=== PATIENT | female | born 1990 | race African-American/Black ===

== ENCOUNTER 2016-04-26 19:07 | Emergency (ER) | payer OTHER ==
[2016-04-26] MEDS ORDERED: AMOXICILLIN 500 MG CAP As Ordered ONE (20:38)
--- NOTE | 2016-04-26 20:57 | EDDOCDS ---
Nurse's Notes [facility] Name: Christel Arreola Age: 25 yrs Sex: Female : 1990 Arrival Date: 04/26/2016 Time: 19:07 Bed D1 Private MD: Vik [facility] Diagnosis: Acute upper respiratory infections of multiple and unspecified sites;Acute bronchitis Presentation: 04/26 19:15 Presenting complaint: Patient states: that she has had a cold and fever for the past ms18 week. Pt also reports cough. Adult Sepsis Screening: The patient does not have new or worsening altered mentation. Patient's respiratory rate is less than 22. Systolic blood pressure is greater than 100. Patient has a qSOFA score of 0- Negative Sepsis Screen. Suicide/Homicide risk assessment- the patient denies having any suicidal and/or homicidal ideations and does not present with any other emotional, behavioral or mental health complaints. Status: The patient is a dependent. Transition of care: patient was not received from another setting of care. 19:15 Acuity: ABYB Level 4 ms18 19:15 Method Of Arrival: Walkin/Carried/Asstd ms18 Triage Assessment: 19:16 General: Appears in no apparent distress, comfortable, Behavior is appropriate for age, ms18 cooperative. Pain: Pain currently is 0 out of 10 on a pain scale. HIV screening NA for this visit Offered previously. Neurological: Level of Consciousness is awake, alert, obeys commands, Oriented to person, place, time. Respiratory: Airway is patent Respiratory effort is even, unlabored. Derm: Skin is pink, warm & dry. normal. 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 none - PMHx: none; - PSHx: ; - Social history: Smoking status: Patient states was never smoker of tobacco. No barriers to communication noted, The patient speaks fluent Turkish. - Family history: Not pertinent. - : The pt / caregiver states he / she is not on anticoagulants. Home medication list is obtained from the patient. - Exposure Risk Screening:: None identified. Screenin:53 Screening information is obtained from the patient. Fall risk: No risks identified. jmb Assistance ADL's: requires no assistance with activities of daily living. Abuse/DV Screen: The patient / caregiver reports he/she is: not in a situation that causes fear, pain or injury. Nutritional screening: No deficits noted. Advance Directives: Currently, there is no health care proxy. There is no active DNR order. There is no living will. There is no Power of Flavor Maker. home support is adequate. Assessment: 20:53 General: Patient instructed on discharge instructions. Patient asked if there were any jmb questions regarding discharge, patient stated no. Patient signed discharge instructions. Patient discharged in stable condition. . Vital Signs: 19:08 BP 128 / 75; Pulse 75; Resp 18 S; Temp 97.7(O); Pulse Ox 100% on R/A; Weight 72.57 kg dd6 (R); Height 5 ft. 6 in. (167.64 cm) (R); 20:53 BP 120 / 70; Pulse 80; Resp 18; Temp 97.6(O); Pulse Ox 98% on R/A; Pain 0/10; jmb 19:08 Body Mass Index 25.82 (72.57 kg, 167.64 cm) dd6 Vitals: 19:08 Log In Time: April 26, 2016 at 19:00. dd6 ED Course: 19:08 Patient visited by Willian Rene PCA. dd6 19:08 TREASURE Chery is Private Physician. dd6 19:08 Patient moved to Waiting dd6 19:09 Patient moved to Pre RCE dd6 19:15 Triage Initiated ms18 19:44 Patient moved to D1 jmb 19:54 [facility] cc10 19:54 Gaetano Woodard DO is Attending Physician. cc10 20:10 Patient visited by Mikal Bravo PA-C. cc10 20:10 Patient visited by Mikal Bravo PA-C. cc10 20:45 BHAVIN Chery is Referral Physician. cc10 20:53 The patient / caregiver is instructed regarding the plan of care and ED course. jmb 20:53 No IV's were initiated during this patient's visit. No procedures done that require jmb assistance. Administered Medications: 20:44 Drug: Amoxicillin 500 mg [amoxicillin 500 mg capsule (1 caps)] Route: PO; jmb Order Results: There are currently no results for this order. Outcome: 20:45 Discharge ordered by Provider. cc10 20:53 Discharge Assessment: Patient awake, alert and oriented x 3. No cognitive and/or jmb functional deficits noted. Patient verbalized understanding of disposition instructions. Patient awake and alert. obeys commands, Oriented to person, place and time. Patient verbalized understanding of disposition instructions. Patient has no functional deficits. patient administered narcotics - no. The following High Risk Discharge criteria are identified: None. Discharged to home ambulatory, with family. Condition: stable Condition: improved. Discharge instructions given to patient, Instructed on discharge instructions, follow up and referral plans. medication usage, Demonstrated understanding of instructions, medications, Pt was receptive of discharge instructions/ teaching. Prescriptions given X 3. No special radiology studies were completed. Property sent home with patient. 20:57 Patient left the ED. erica Signatures: Willian Rene, ENGINE INSTALLER ENGINE INSTALLER dd6 Benjamin Amaya,RN RN Mikal Kilgore, PA-C PA-C cc10 Melanie Ellison,RN RN ms18 [facility]
--- NOTE | 2016-04-26 20:57 | EDDOCDS ---
Physician Documentation [facility] Name: Christel Arreola Age: 25 yrs Sex: Female : 1990 Arrival Date: 04/26/2016 Time: 19:07 Bed D1 Private MD: BHAVIN Chery Disposition: 04/26/16 20:45 Discharged to Home/Self Care. Impression: Acute upper respiratory infections of multiple and unspecified sites, Acute bronchitis. - Condition is Stable. - Discharge Instructions: Acute Bronchitis, Upper Respiratory Infection, Adult. - Prescriptions for Amoxicillin 875 mg Oral Tablet - take 1 tablet by ORAL route every 12 hours for 10 days; 20 tablet. Prednisone 20 mg Oral Tablet - take 1 tablet by ORAL route once daily for 5 days; 5 tablet. benzonatate 200 mg Oral Capsule - take 1 capsule by ORAL route 3 times per day As needed; 30 capsule. - Medication Reconciliation form. - Follow up: Emergency Department; When: As needed. Follow up: BHAVIN Chery; When: Call to arrange an appointment; Reason: Wound/Symptom Recheck, Recheck today's complaints, Continuance of care. - Problem is an ongoing problem. - Symptoms are unchanged. Historical: - Allergies: no known allergies; - Home Meds: 1. none - PMHx: none; - PSHx: ; - Social history: Smoking status: Patient states was never smoker of tobacco. No barriers to communication noted, The patient speaks fluent Egyptian. - Family history: Not pertinent. - : The pt / caregiver states he / she is not on anticoagulants. Home medication list is obtained from the patient. - Exposure Risk Screening:: None identified. 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 6 in. (167.64 cm) (R); 20:53 BP 120 / 70; Pulse 80; Resp 18; Temp 97.6(O); Pulse Ox 98% on R/A; Pain 0/10; jmb 19:08 Body Mass Index 25.82 (72.57 kg, 167.64 cm) dd6 MDM: 20:34 Amoxicillin 500 mg PO once ordered. cc10 Administered Medications: 20:44 Drug: Amoxicillin 500 mg [amoxicillin 500 mg capsule (1 caps)] Route: PO; erica Signatures: Benjamin AmayaRN RN Mikal Kilgore, PA-C PA-C cc10 Melanie Ellison RN RN ms18 [facility]
--- NOTE | 2016-04-28 21:58 | EDDOCDS ---
Nurse's Notes [facility] Name: Christel Arreola Age: 25 yrs Sex: Female : 1990 Arrival Date: 04/26/2016 Time: 19:07 Bed D1 Private MD: Vik [facility] Diagnosis: Acute upper respiratory infections of multiple and unspecified sites;Acute bronchitis Presentation: 04/26 19:15 Presenting complaint: Patient states: that she has had a cold and fever for the past ms18 week. Pt also reports cough. Adult Sepsis Screening: The patient does not have new or worsening altered mentation. Patient's respiratory rate is less than 22. Systolic blood pressure is greater than 100. Patient has a qSOFA score of 0- Negative Sepsis Screen. Suicide/Homicide risk assessment- the patient denies having any suicidal and/or homicidal ideations and does not present with any other emotional, behavioral or mental health complaints. Status: The patient is a dependent. Transition of care: patient was not received from another setting of care. 19:15 Acuity: ABBY Level 4 ms18 19:15 Method Of Arrival: Walkin/Carried/Asstd ms18 Triage Assessment: 19:16 General: Appears in no apparent distress, comfortable, Behavior is appropriate for age, ms18 cooperative. Pain: Pain currently is 0 out of 10 on a pain scale. HIV screening NA for this visit Offered previously. Neurological: Level of Consciousness is awake, alert, obeys commands, Oriented to person, place, time. Respiratory: Airway is patent Respiratory effort is even, unlabored. Derm: Skin is pink, warm & dry. normal. 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 none - PMHx: none; - PSHx: ; - Social history: Smoking status: Patient states was never smoker of tobacco. No barriers to communication noted, The patient speaks fluent Serbian. - Family history: Not pertinent. - : The pt / caregiver states he / she is not on anticoagulants. Home medication list is obtained from the patient. - Exposure Risk Screening:: None identified. Screenin:53 Screening information is obtained from the patient. Fall risk: No risks identified. jmb Assistance ADL's: requires no assistance with activities of daily living. Abuse/DV Screen: The patient / caregiver reports he/she is: not in a situation that causes fear, pain or injury. Nutritional screening: No deficits noted. Advance Directives: Currently, there is no health care proxy. There is no active DNR order. There is no living will. There is no Power of Sketch Maker. home support is adequate. Assessment: 20:53 General: Patient instructed on discharge instructions. Patient asked if there were any b questions regarding discharge, patient stated no. Patient signed discharge instructions. Patient discharged in stable condition. . Vital Signs: 19:08 BP 128 / 75; Pulse 75; Resp 18 S; Temp 97.7(O); Pulse Ox 100% on R/A; Weight 72.57 kg dd6 (R); Height 5 ft. 6 in. (167.64 cm) (R); 20:53 BP 120 / 70; Pulse 80; Resp 18; Temp 97.6(O); Pulse Ox 98% on R/A; Pain 0/10; jmb 19:08 Body Mass Index 25.82 (72.57 kg, 167.64 cm) dd6 Vitals: 19:08 Log In Time: April 26, 2016 at 19:00. dd6 ED Course: 19:08 Patient visited by Willian Rene PCA. dd6 19:08 Vik [facility] is Private Physician. dd6 19:08 Patient moved to Waiting dd6 19:09 Patient moved to Pre RCE dd6 19:15 Triage Initiated ms18 19:44 Patient moved to D1 jmb 19:54 Mikal Bravo PA-C [facility]. cc10 19:54 Gaetano Woodard DO is Attending Physician. cc10 20:10 Patient visited by Mikal Bravo PA-C. cc10 20:10 Patient visited by Mikal Bravo PA-C. cc10 20:45 BHAVIN Chery is Referral Physician. cc10 20:53 The patient / caregiver is instructed regarding the plan of care and ED course. jmb 20:53 No IV's were initiated during this patient's visit. No procedures done that require jmb assistance. 22:10 [facility] Payment Agreement was scanned into [employer] and attached to record. gjb 22:43 Patient name changed from Christel\S\Mary\S\Silesia\S\ to Christel\S\ \S\Silesia. EDMS 04/27 10:34 T-Sheet-- Draft Copy was scanned into [employer] and attached to record. gb Administered Medications: 04/26 20:44 Drug: Amoxicillin 500 mg [amoxicillin 500 mg capsule (1 caps)] Route: PO; jmb Order Results: There are currently no results for this order. Outcome: 20:45 Discharge ordered by Provider. cc10 20:53 Discharge Assessment: Patient awake, alert and oriented x 3. No cognitive and/or jmb functional deficits noted. Patient verbalized understanding of disposition instructions. Patient awake and alert. obeys commands, Oriented to person, place and time. Patient verbalized understanding of disposition instructions. Patient has no functional deficits. patient administered narcotics - no. The following High Risk Discharge criteria are identified: None. Discharged to home ambulatory, with family. Condition: stable Condition: improved. Discharge instructions given to patient, Instructed on discharge instructions, follow up and referral plans. medication usage, Demonstrated understanding of instructions, medications, Pt was receptive of discharge instructions/ teaching. Prescriptions given X 3. No special radiology studies were completed. Property sent home with patient. 20:57 Patient left the ED. erica Signatures: Dispatcher [facility] EDMS Alivia Melendez, Reg Reg gb Willian Rene, ANTHROPOLOGY AND ARCHEOLOGY INSTRUCTOR ANTHROPOLOGY AND ARCHEOLOGY INSTRUCTOR dd6 Benjamin Amaya,RN RN Mikal Kilgore, PA-C PA-C cc10 Melanie Ellison RN RN ms18 Callie Antony Chart Complete MTDD
--- NOTE | 2016-04-28 21:58 | EDDOCDS ---
Physician Documentation [facility] Name: Christel Arreola Age: 25 yrs Sex: Female : 1990 Arrival Date: 04/26/2016 Time: 19:07 Bed D1 Private MD: BHAVIN Chery Disposition: 04/26/16 20:45 Discharged to Home/Self Care. Impression: Acute upper respiratory infections of multiple and unspecified sites, Acute bronchitis. - Condition is Stable. - Discharge Instructions: Acute Bronchitis, Upper Respiratory Infection, Adult. - Prescriptions for Amoxicillin 875 mg Oral Tablet - take 1 tablet by ORAL route every 12 hours for 10 days; 20 tablet. Prednisone 20 mg Oral Tablet - take 1 tablet by ORAL route once daily for 5 days; 5 tablet. benzonatate 200 mg Oral Capsule - take 1 capsule by ORAL route 3 times per day As needed; 30 capsule. - Medication Reconciliation form. - Follow up: Emergency Department; When: As needed. Follow up: BHAVIN Chery; When: Call to arrange an appointment; Reason: Wound/Symptom Recheck, Recheck today's complaints, Continuance of care. - Problem is an ongoing problem. - Symptoms are unchanged. Historical: - Allergies: no known allergies; - Home Meds: 1. none - PMHx: none; - PSHx: ; - Social history: Smoking status: Patient states was never smoker of tobacco. No barriers to communication noted, The patient speaks fluent Trinidadian. - Family history: Not pertinent. - : The pt / caregiver states he / she is not on anticoagulants. Home medication list is obtained from the patient. - Exposure Risk Screening:: None identified. 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 6 in. (167.64 cm) (R); 20:53 BP 120 / 70; Pulse 80; Resp 18; Temp 97.6(O); Pulse Ox 98% on R/A; Pain 0/10; jmb 19:08 Body Mass Index 25.82 (72.57 kg, 167.64 cm) dd6 MDM: 20:34 Amoxicillin 500 mg PO once ordered. cc10 22:10 [facility] Payment Agreement was scanned into [employer]. and attached to record. gjb 22: Financial registration complete. gjb 04/27 10:34 T-Sheet-- Draft Copy was scanned into [employer] and attached to record. gb Administered Medications: 04/26 20:44 Drug: Amoxicillin 500 mg [amoxicillin 500 mg capsule (1 caps)] Route: PO; erica Signatures: Alivia Melendez, Reg Reg gb Benjamin Amaya,RN RN Mikal Kilgore, PA-C PA-C cc10 Melanie EllisonRN RN ms18 Callie Antony The chart was reviewed and I authenticate all verbal orders and agree with the evaluation and treatment provided.Attachments: 22:10 [facility] Payment Agreement gjb 04/27 10:34 T-Sheet-- Draft Copy gb Chart Complete MTDD
--- NOTE | 2016-04-28 21:58 | EDDOCDS ---
Physician Documentation [facility] Name: Christel Arreola Age: 25 yrs Sex: Female : 1990 Arrival Date: 04/26/2016 Time: 19:07 Bed D1 Private MD: BHAVIN Chery Disposition: 04/26/16 20:45 Discharged to Home/Self Care. Impression: Acute upper respiratory infections of multiple and unspecified sites, Acute bronchitis. - Condition is Stable. - Discharge Instructions: Acute Bronchitis, Upper Respiratory Infection, Adult. - Prescriptions for Amoxicillin 875 mg Oral Tablet - take 1 tablet by ORAL route every 12 hours for 10 days; 20 tablet. Prednisone 20 mg Oral Tablet - take 1 tablet by ORAL route once daily for 5 days; 5 tablet. benzonatate 200 mg Oral Capsule - take 1 capsule by ORAL route 3 times per day As needed; 30 capsule. - Medication Reconciliation form. - Follow up: Emergency Department; When: As needed. Follow up: BHAVIN Chery; When: Call to arrange an appointment; Reason: Wound/Symptom Recheck, Recheck today's complaints, Continuance of care. - Problem is an ongoing problem. - Symptoms are unchanged. Historical: - Allergies: no known allergies; - Home Meds: 1. none - PMHx: none; - PSHx: ; - Social history: Smoking status: Patient states was never smoker of tobacco. No barriers to communication noted, The patient speaks fluent American. - Family history: Not pertinent. - : The pt / caregiver states he / she is not on anticoagulants. Home medication list is obtained from the patient. - Exposure Risk Screening:: None identified. 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 6 in. (167.64 cm) (R); 20:53 BP 120 / 70; Pulse 80; Resp 18; Temp 97.6(O); Pulse Ox 98% on R/A; Pain 0/10; jmb 19:08 Body Mass Index 25.82 (72.57 kg, 167.64 cm) dd6 MDM: 20:34 Amoxicillin 500 mg PO once ordered. cc10 22:10 [facility] Payment Agreement was scanned into [employer] and attached to record. gjb 22: Financial registration complete. gjb 04/27 10:34 T-Sheet-- Draft Copy was scanned into [employer] and attached to record. gb Administered Medications: 04/26 20:44 Drug: Amoxicillin 500 mg [amoxicillin 500 mg capsule (1 caps)] Route: PO; erica Signatures: Alivia Melendez, Reg Reg gb Benjamin Amaya,RN RN Mikal Kilgore, PA-C PA-C cc10 Melanie EllisonRN RN ms18 Callie Antony The chart was reviewed and I authenticate all verbal orders and agree with the evaluation and treatment provided.Attachments: 22:10 [facility] Payment Agreement gjb 04/27 10:34 T-Sheet-- Draft Copy gb Chart Complete MTDD
== END 2016-04-26 20:57 | disposition home or self-care (01) ==
LOC: M ED 19:07
DX: J20.9 Acute bronchitis, unspecified (principal); J06.9 Acute upper respiratory infection, unspecified; Z20.818 Contact with and (suspected) exposure to other bacterial communicable diseases

== ENCOUNTER 2016-07-13 18:39 | Emergency (ER) | payer OTHER ==
[~2016-07-13] VITALS: Ht 167.6 cm; Wt 70.3 kg
[2016-07-13 18:40] VITALS: BP 118/71
[2016-07-13] MEDS ORDERED: AMOX500C PO (21:05)
[2016-07-13] MEDS ORDERED: AMOXICILLIN 500 MG CAP PO ONE (21:15)
[2016-07-13] MEDS ORDERED: NORCO 5/325MG TABLET (BULK FOR ED) PO ONE (21:15)
== END 2016-07-13 21:20 | disposition home or self-care (01) ==
LOC: M ED 19:49
DX: R51 Headache (principal); K02.9 Dental caries, unspecified

== ENCOUNTER 2016-10-21 13:14 | Emergency (ER) | payer OTHER ==
[~2016-10-21] VITALS: Ht 167.6 cm; Wt 68.4 kg
[2016-10-21 13:14] VITALS: BP 115/65
[~2016-10-21 13:14] MED LIST: AMOX500C PO
[2016-10-21] MEDS ORDERED: ZOFR4TAB3 PO (14:05)
== END 2016-10-21 14:11 | disposition home or self-care (01) ==
LOC: M ED 13:14
DX: R11.2 Nausea with vomiting, unspecified (principal); R19.7 Diarrhea, unspecified; F99 Mental disorder, not otherwise specified

== ENCOUNTER → 2017-04-07 | Outpatient (REF) | payer OTHER | LOC: M SFHCLERA 15:16 | DX: R11.2 Nausea with vomiting, unspecified (principal); J02.9 Acute pharyngitis, unspecified ==

== ENCOUNTER 2017-10-09 12:24 | Emergency (ER) | payer OTHER | END 2017-10-09 14:37 | disposition home or self-care (01) | LOC: M ED 12:24 | DX: H10.31 Unspecified acute conjunctivitis, right eye (principal); H57.11 Ocular pain, right eye | CPT/HCPCS: 99283 ==

== ENCOUNTER → 2019-01-19 | Outpatient (CLI) | payer OTHER ==
[~2019-01-19] MED LIST changes: +ERYT1OIN26 OD; +ISOVUE-370 76% 100ML VIAL (Q9967) As Ordered ONE; +ZOFR4TAB14 PO
--- NOTE | 2019-01-19 12:38 | REP ---
HYSTEROSALPINGOGRAM: HISTORY: Check tubal length. Status post tubal ligation for potential reanastomosis. Fluoroscopy time is 0.5 minutes. Sequential spot radiographs of the pelvis are acquired during contrast which was injected by the attending manufacturing cost estimator. FINDINGS: Uterus is somewhat retroverted. Endometrial cavity is unremarkable. The isthmic segments of the fallopian tubes are opacified bilaterally over a 2.6 cm length on the left and 2.3 cm length on the right. The right isthmic segment is redundant its course. No peritoneal spillage. IMPRESSION: Retroverted uterus. Bilateral tubal occlusion. 2.3 and 2.6 cm long segments of the fallopian tubes are opacified. Electronically Signed by Gerald Stock MD 01/19/2019 07:40 P
--- NOTE | 2019-01-24 07:15 | RO ---
DATE OF PROCEDURE: 01/23/2019 This lady is being seen for hysterosalpingogram to evaluate tubal length before she goes for a tubal reconstruction. She has had a previous tubal ligation 5 years ago. She has no idea of what type her method in reviewing the chart and having seen two providers there is no indication of what type of tubal ligation was done after explaining the procedure and getting consent form, the patient was prepped in the lithotomy position and sterile speculum was placed in vagina we were able to put the small Peacock bulb into the uterus and it through the cervix. It was secured with 3 mL of air and then we placed the dye through the uterine cavity. We had fluoroscopic evaluation. Uterus is markedly retroverted retroflexed. However, at the contour of the uterine cavity was intact and we saw spilled to the fimbriated end on one side was 3.6 cm in the side was 2.3 cm. There is no evidence of an occlusion between the cornual end of what well I would assume would be the fimbriated end with the examination completed we removed the instruments. The patient did not have any significant bleeding or pain. She was discharged to follow up with her primary care for further instructions regarding tubal anastomosis.
== END ==
LOC: M RADPRO 11:40
PROVIDERS: ATTEND Obstetrics & Gynecology
DX: Z98.51 Tubal ligation status (principal); Z09 Encounter for follow-up examination after completed treatment for conditions other than malignant neoplasm
CPT/HCPCS: 58340; 74740; Q9967

== ENCOUNTER → 2019-04-24 | Outpatient (REF) | payer OTHER ==
[~2019-04-24] MED LIST changes: -ISOVUE-370 76% 100ML VIAL (Q9967) As Ordered ONE
== END ==
LOC: M SFHCLERA 17:29
PROVIDERS: ATTEND Nurse Practitioner Family
DX: R53.81 Other malaise (principal)

== ENCOUNTER → 2019-06-19 | Outpatient (REF) | payer OTHER | LOC: M SFHCLERA 15:56 | PROVIDERS: ATTEND Physician Assistant | DX: J02.9 Acute pharyngitis, unspecified (principal) ==

== ENCOUNTER 2020-04-29 09:53 | Emergency (ER) | payer OTHER ==
[~2020-04-29] VITALS: Ht 167.6 cm; Wt 73.3 kg
[~2020-04-29 09:53] MED LIST changes: -ERYT1OIN26 OD; +ERYT5OIN25 OD
[2020-04-29 10:37] LABS: BASO % 0.5 % (0.0-1.0); EOS # 0.1 10^3/uL (0.0-0.5); EOS % 2.2 % (0.0-3.0); HEMATOCRIT 38.9 % (36.0-47.0); HEMOGLOBIN 12.6 g/dl (12.0-15.5); LYMPH # 1.5 10^3/uL (1.5-5.0); LYMPH % 36.9 % (24.0-44.0); MEAN CORPUSCULAR HEMOGLOBIN 30.7 pg (27.0-33.0); MEAN CORPUSCULAR HGB CONC 32.4 g/dl (32.0-36.5); MEAN CORPUSCULAR VOLUME 94.9 fl (80.0-96.0); MONO # 0.4 10^3/uL (0.0-0.8); MONO % 9.9 % (0.0-5.0); NEUTROPHILS % 50.3 % (36.0-66.0); PLATELET COUNT, AUTOMATED 229 10^3/uL (150-450)
[2020-04-29 11:04] LABS: HCG, SERUM QUALITATIVE NEGATIVE (NEGATIVE)
[2020-04-29 11:06] LABS: ALBUMIN 3.6 GM/DL (3.2-5.2); ALT/SGPT 24 U/L (12-78); BILIRUBIN,DIRECT 0.2 MG/DL (0.0-0.2); BILIRUBIN,TOTAL 0.8 MG/DL (0.2-1.0); BLOOD UREA NITROGEN 13 MG/DL (7-18); CALCIUM LEVEL 9.1 MG/DL (8.5-10.1); CARBON DIOXIDE LEVEL 31 MEQ/L (21-32); CHLORIDE LEVEL 106 MEQ/L (98-107); CREATININE FOR GFR 0.74 MG/DL (0.55-1.30); GLOMERULAR FILTRATION RATE > 60.0 (>60); GLUCOSE, FASTING 81 MG/DL (70-100); LIPASE 114 U/L (73-393); POTASSIUM SERUM 3.7 MEQ/L (3.5-5.1); SODIUM LEVEL 141 MEQ/L (136-145); TOTAL PROTEIN 7.2 GM/DL (6.4-8.2)
[2020-04-29] MEDS ORDERED: COLA100C5 PO (12:00)
[2020-04-29 12:02] VITALS: BP 109/65
== END 2020-04-29 12:11 | disposition home or self-care (01) ==
LOC: M ED 09:53
DX: Z20.828 Contact with and (suspected) exposure to other viral communicable diseases (principal); H61.21 Impacted cerumen, right ear; K62.5 Hemorrhage of anus and rectum; R07.9 Chest pain, unspecified

== ENCOUNTER 2020-11-14 21:40 | Emergency (ER) | payer OTHER ==
[~2020-11-14] VITALS: Ht 167.6 cm; Wt 64.8 kg
[~2020-11-14 21:40] MED LIST changes: +COLA100C5 PO
[2020-11-15] MEDS ORDERED: CETI10CA2 PO (07:07)
--- NOTE | 2020-11-15 08:39 | REP ---
INDICATION: bony tenderness, NKI. COMPARISON: None. TECHNIQUE: Three views FINDINGS: Normal bone texture. No fracture or dislocation. Soft tissues unremarkable. IMPRESSION: Normal exam <Electronically signed by Dustin Segal > 11/15/20 [id number]
--- NOTE | 2020-11-15 08:41 | REP ---
INDICATION: intermittent L sided facial tingling x 2 days. COMPARISON: None. TECHNIQUE: Unenhanced axial scans FINDINGS: There is no displacement of midline structures. The 3rd and lateral ventricles show normal size configuration. The cerebral hemispheres show normal configuration and attenuation. There is no hemorrhage, mass effect or edema. The brainstem and posterior fossa are unremarkable. IMPRESSION: Negative brain CT. <Electronically signed by Dustin Segal > 11/15/20 [id number]
--- NOTE | 2020-11-15 08:42 | REP ---
INDICATION: L arm pain, tingling. COMPARISON: None. TECHNIQUE: Unenhanced axial scans sagittal coronal reconstructions. FINDINGS: Normal alignment. No fracture. Disc spaces well maintained. No foraminal encroachment or spinal stenosis. Prevertebral soft tissues unremarkable. IMPRESSION: Negative examination. <Electronically signed by Dustin Segal > 11/15/20 0884
[2020-11-15 08:55] VITALS: BP 111/66
== END 2020-11-15 08:57 | disposition home or self-care (01) ==
LOC: M ED 21:40
DX: M54.2 Cervicalgia (principal); M79.602 Pain in left arm; R20.2 Paresthesia of skin; R51.9 Headache, unspecified